=== PATIENT | male | born 1945 | race Caucasian/White ===

== ENCOUNTER 2017-03-22 07:36 | Day surgery (SDC) | payer BC ==
[2017-03-13 13:59] VITALS: BMI 29.9
[2017-03-22] MEDS ORDERED: DEXAMETHASONE SOD PHOSPHATE/PF 10 MG/ML SDV ONE (09:36)
[2017-03-22] MEDS ORDERED: MIDAZOLAM HCL 2 MG/2 ML SINGLE DOSE VIAL ONE ×2 (09:37→10:55)
[2017-03-22] MEDS ORDERED: ROPIVACAINE HCL 0.5% 30ML VIAL ONE (09:38)
[2017-03-22] MEDS ORDERED: BUPIVACAINE HCL/EPINEPHRINE/PF 30 ML VIAL IJ ONE (10:09)
[2017-03-22] MEDS ORDERED: EPINEPHrine 1:1,000 1 MG/1 ML - 30ML VIAL (INJECTION) ONE ×2 (10:11→11:47)
[2017-03-22] MEDS ORDERED: ceFAZolin SODIUM 1 GM VIAL ONE (10:56)
[2017-03-22] MEDS ORDERED: PROPOFOL 20 ML ONE ×2 (11:02→11:44)
[2017-03-22] MEDS ORDERED: KETAMINE HCL 200 MG/20 ML VIAL ONE (11:12)
[2017-03-22] MEDS ORDERED: oxyCODONE HCL 10 MG SUSTAINED ACTING TABLET PO ONE (11:54)
[2017-03-22] MEDS ORDERED: oxyCODONE HCL 5 MG TABLET PO PRN (11:54)
--- NOTE | 2017-03-22 11:57 | OP ---
Operative Note - Note: Operative Date: 03/22/17 Pre-Operative Diagnosis: Left shoulder RCT Operation: LSA, RCR Post-Operative Diagnosis: Same as Pre-op Surgeon: Hakan Martínez Anesthesiologist/CENSUS TAKER: Parviz Hardin Anesthesia: General Operative Report Dictated: Yes
--- NOTE | 2017-03-22 11:57 | DS ---
Physical Examination Vital Signs: Vital Signs Temperature 98.5 F 03/22/17 08:02 Pulse Rate 76 03/22/17 08:02 Respiratory Rate 16 03/22/17 08:02 Blood Pressure 150/89 03/22/17 08:02 O2 Sat by Pulse Oximetry (%) 96 03/22/17 08:18 Discharge Summary Reason For Visit: ROTATOR CUFF TEAR LEFT SHOULDER Condition: Good - Instructions Diet, Activity, Other Instructions: Post Operative Instructions: Shoulder Arthroscopy Dr Hakan Martínez 1. Pain following a Shoulder Arthroscopy is variable and can be significant. Some patients will have more pain than others. You have been provided with a prescription for medication that contains a narcotic. You are not allowed to drive while on this medication. Feel free to take medications such as Ibuprofen or Naprosyn in addition to the pain medicine if you do not have any problems with the NSAID class of medications. 2. Apply ice to the shoulder for 15 minutes every hour. You may continue this for as many days as necessary. 3. You may find sleeping on an incline (reclining chair) to be more comfortable for the first few days. 4. You must remain in your sling at all times except when showering. The only exception to this is to allow you to stretch your elbow a few times a day to prevent your hand and forearm from swelling. 5. You are not to use your arm to reach for anything, lift anything or carry anything until instructed otherwise. 6. You may remove the bandages in 48 hours. You may shower at that point. 7. Place band-aids on the sutures after your shower.Do not put any creams or lotions on the incision until after the sutures are removed. 8. Please call the office to schedule a visit to have your sutures removed. 9. If for any reason you believe you may have an infection or are concerned, please feel free to call me. I can be reached through our office number 24 hours a day. 10. Please call our office with any questions; we will review the surgical findings during your post-operative visit. Disposition: HOME - Home Medications Comprehensive Discharge Medication List: Ambulatory Orders Allopurinol [Zyloprim -] 500 mg PO DAILY 03/13/17 Losartan Potassium [Cozaar -] 50 mg PO DAILY 03/13/17 Stover-3 Acid Ethyl Esters [Lovaza] 500 mg PO DAILY 03/13/17 Rosuvastatin Calcium [Crestor] 5 mg PO DAILY 03/13/17
--- NOTE | 2017-03-22 12:10 | SURG ---
Surgery Pig Iron Loader Note Pig Iron Loader: Julian Holloway PA-C Date of Service: 03/22/17 Diagnosis: Left shoulder rotator cuff tear Procedure: Left should arthroscopy, rotator cuff repair (anchors x2) I was present for the entirety of the operative procedure. For further detail, please refer to operative report. Visit type - Case Type Case Type: Scheduled Admission - New patient This patient is new to me today: Yes Date on this admission: 03/22/17
[2017-03-22] MEDS ORDERED: ONDANSETRON 4 MG/2 ML VIAL IVPUSH PRN (13:51)
[2017-03-22] MEDS ORDERED: PROMETHAZINE HCL 25 MG/1 ML VIAL IVPUSH PRN (13:51)
[2017-03-22] MEDS ORDERED: LACTATED RINGERS SOLUTION 1,000 ML IV SCH (14:00)
[2017-03-22 14:36] VITALS: TEMP 97.5
[2017-03-22 14:39] VITALS: BP 136/76; PULSE 78
--- NOTE | 2017-03-27 15:19 | PATH ---
Surgical Pathology Report Patient Name: ALONDRA CINTRON Med. Rec. #: [id number] /Age/Gender: 1945 (Age: 72) / M Account: [id number] Location: [facility] Taken: 03/22/2017 Received: 03/25/2017 Reported: 03/27/2017 Physicians: Hakan Martínez M.D. Specimen(s) Received SHAVINGS Clinical History Rotator cuff tear left shoulder Final Diagnosis SHOULDER SHAVINGS, LEFT, ARTHROSCOPIC ROTATOR CUFF REPAIR: FIBROUS TISSUE, SYNOVIUM, SCANT FRAGMENTS OF FIBROCARTILAGE, RARE SKELETAL MUSCLE, AND ADIPOSE TISSUE. Electronically Signed Perla Muhammad M.D. Gross Description Received in formalin, labeled "shavings left shoulder," is a 3.0 x 2.5 x 0.3 cm. aggregate of barth-yellow soft tissue fragments. A direct sales representative portion is submitted in one cassette. 03/25/201703/25/2017
== END 2017-03-22 14:15 | disposition home or self-care (01) ==
LOC: FASU 07:36
PROVIDERS: ATTEND Orthopaedic Surgery
PROC: 0LB24ZZ Excision of Left Shoulder Tendon, Percutaneous Endoscopic Approach (ICD-10-PCS; principal; 2017-03-22 09:30)
PROC: 0RNK4ZZ Release Left Shoulder Joint, Percutaneous Endoscopic Approach (ICD-10-PCS; 2017-03-22 09:30)
DX: M75.102 Unspecified rotator cuff tear or rupture of left shoulder, not specified as traumatic (principal)
CPT/HCPCS: 88304-TC